=== PATIENT | male | born 2000 | race Caucasian/White ===

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

== ENCOUNTER 2019-04-15 10:45 | Emergency (ER) | payer SELFPAY ==
[~2019-04-15] VITALS: Ht 170.2 cm; Wt 58.1 kg
[2019-04-15 10:51] VITALS: BP 113/67
[2019-04-15] MEDS ORDERED: IBUPROFEN 600 MG TAB PO ONE (11:25)
[2019-04-15] MEDS ORDERED: KETOROLAC 30 MG/ML VIAL IM ONE (12:40)
[2019-04-15 14:59] VITALS: BP 102/63
== END 2019-04-15 14:59 | disposition home or self-care (01) ==
LOC: MED 10:45
DX: S51.812A Laceration without foreign body of left forearm, initial encounter (principal); S51.811A Laceration without foreign body of right forearm, initial encounter; R07.89 Other chest pain; Y04.0XXA Assault by unarmed brawl or fight, initial encounter; Y93.89 Activity, other specified; Y92.89 Other specified places as the place of occurrence of the external cause; Y99.8 Other external cause status
CPT/HCPCS: 71101; 72170; 86703; 96372; 99284; J1885

== ENCOUNTER 2019-04-17 11:51 | Emergency (ER) | payer SELFPAY ==
[~2019-04-17] VITALS: Ht 170.2 cm; Wt 56.7 kg
[2019-04-17 11:58] VITALS: BP 136/76
--- NOTE | 2019-04-17 11:58 | NUR ---
PATIENT AMBULATED TO BED 3 AT THIS TIME.
--- NOTE | 2019-04-17 12:00 | NUR ---
18/M presents to ED for a work excuse allowing him to return back to work. Pt was seen Saturday and given a work excuse but patient states his job needs a doctor's note saying he has no restrictions. Pt denies any pain at this time.
[2019-04-17 12:43] VITALS: BP 136/76
--- NOTE | 2019-04-17 12:43 | NUR ---
Patient discharged with v/s stable. Written and verbal after care instructions given and explained. Patient verbalized understanding. Ambulatory with steady gait. All questions addressed prior to discharge. Patient provided with work excuse allowing patient to return to work with full activity.
== END 2019-04-17 12:43 | disposition home or self-care (01) ==
LOC: MED 11:51
DX: Z02.89 Encounter for other administrative examinations (principal); Y08.89XA Assault by other specified means, initial encounter; Y93.89 Activity, other specified; Y92.89 Other specified places as the place of occurrence of the external cause; Y99.8 Other external cause status
CPT/HCPCS: 99281

== ENCOUNTER 2019-04-21 10:14 | Emergency (ER) | payer SELFPAY ==
[~2019-04-21] VITALS: Ht 170.2 cm; Wt 56.7 kg
[2019-04-21 10:16] VITALS: BP 125/62
--- NOTE | 2019-04-21 10:16 | NUR ---
CAME HERE FOR MEDICAL CLEARANCER & GET PERMISSION TO GO BACK TO WORK AFTER RIGHT ANKLE PAIN X 2 DAYS AGO. PT STATES PAIN HURTS WHEN HE ADDS PRESSURE TO RIGHT ANKLE. NO REDNESS OR SWELLING NOTED. CMS INTACT. VSS. PEDAL PULSE +2 BILATERALLY. NO OBVIOUS DEFOMRITY NOTED ON EXTREM. PATIENT POSITIONED FOR COMFORT; HOB ELEVATED; BEDRAILS UP X2; BED DOWN. ER MD MADE AWARE OF PT STATUS. NKA. NO PMH.
[2019-04-21] MEDS ORDERED: IBUPROFEN 400 MG TAB PO ONE (10:35)
--- NOTE | 2019-04-21 10:41 | NUR ---
RT AT BEDSIDE TO TRANSFER PT TO XR VIA WHEELCHAIR.
--- NOTE | 2019-04-21 11:09 | NUR ---
Dr. Jimenez evaluating patient at bedside.
[2019-04-21 11:19] VITALS: BP 125/62
--- NOTE | 2019-04-21 11:20 | NUR ---
DPatient discharged with v/s stable. Written and verbal after care instructions given and explained. Patient verbalized understanding. Ambulatory with steady gait. All questions addressed prior to discharge. Advised to follow up with PMD.
== END 2019-04-21 11:15 | disposition home or self-care (01) ==
LOC: MED 10:14
DX: S90.31XA Contusion of right foot, initial encounter (principal); X50.1XXA Overexertion from prolonged static or awkward postures, initial encounter; Y93.39 Activity, other involving climbing, rappelling and jumping off; Y92.89 Other specified places as the place of occurrence of the external cause; Y99.8 Other external cause status
CPT/HCPCS: 73630; 73650; 99283

== ENCOUNTER 2019-06-12 20:46 | Emergency (ER) | payer SELFPAY ==
[~2019-06-12] VITALS: Ht 175.3 cm; Wt 56.7 kg
[2019-06-12 20:46] VITALS: BP 117/78
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
--- NOTE | 2019-06-12 20:46 | NUR ---
SANDI BELTRAN. AMBULATED TO CHAIR C.
[2019-06-12 21:10] VITALS: BP 110/75
--- NOTE | 2019-06-12 21:11 | NUR ---
Patient discharged with v/s stable. Written and verbal after care instructions given and explained. Patient verbalized understanding. Amb in custody, escorted by [facility]. All questions addressed prior to discharge. Advised to follow up with PMD.
== END 2019-06-12 21:10 ==
LOC: MED 20:46
DX: M79.10 Myalgia, unspecified site (principal); Z02.89 Encounter for other administrative examinations
CPT/HCPCS: 99283

== ENCOUNTER 2019-06-25 23:37 | Emergency (ER) | payer SELFPAY ==
[~2019-06-25] VITALS: Ht 172.7 cm; Wt 68.0 kg
[2019-06-25 23:38] VITALS: BP 150/98
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
--- NOTE | 2019-06-25 23:43 | NUR ---
TO BED # 03 VIA WHEEL CHAIR
[2019-06-26 00:39] VITALS: BP 135/76
--- NOTE | 2019-06-26 00:39 | NUR ---
Patient discharged with v/s stable. Written and verbal after care instructions given and explained. Patient verbalized understanding. Ambulatory with steady gait. All questions addressed prior to discharge. Advised to follow up with PMD. Addendum: 06/26/19 at 0104 by CHRISTOPH DISCHARGED BY DR. ROWE.
== END 2019-06-26 00:39 | disposition home or self-care (01) ==
LOC: MED 23:37
DX: R00.2 Palpitations (principal); F41.9 Anxiety disorder, unspecified; R20.0 Anesthesia of skin; F17.210 Nicotine dependence, cigarettes, uncomplicated; F12.90 Cannabis use, unspecified, uncomplicated
CPT/HCPCS: 99283

== ENCOUNTER 2019-09-28 13:20 | Emergency (ER) | payer MEDICAID ==
[~2019-09-28] VITALS: Ht 175.3 cm; Wt 71.7 kg
[2019-09-28 13:40] VITALS: BP 122/89
--- NOTE | 2019-09-28 13:53 | NUR ---
18 Y/O MALE STATES HE WAS SENT HOME FROM WORK TO GET MEDICAL CLEARANCE DUE TO HAVING NON PRODUCTIVE COUGH AND SORE THROAT X 2 DAYS. DENIES PAIN. RR EVEN AND UNLABORED, NO ACCESSORY MUSCLE USED. DENIES FEVER/BODY ACHES. HAS NOT TAKEN ANY MEDICATION FOR COUGH. VSS MEDHX: ANXIETY ALLERIGES: SABINA
--- NOTE | 2019-09-28 14:16 | NUR ---
DR MARIA AT BEDSIDE EXAMINING PT
[2019-09-28 14:30] VITALS: BP 122/89
--- NOTE | 2019-09-28 14:31 | NUR ---
Patient discharged with v/s stable. Written and verbal after care instructions given and explained. Patient alert, oriented and verbalized understanding of instructions. Ambulatory with steady gait. All questions addressed prior to discharge. ID band removed. Patient advised to follow up with PMD. Rx of ATARAX, MOTRIN, PREDNISONE given. Patient educated on indication of medication including possible reaction and side effects. Opportunity to ask questions provided and answered.
== END 2019-09-28 14:31 | disposition home or self-care (01) ==
LOC: MED 13:20
DX: J02.9 Acute pharyngitis, unspecified (principal); F41.9 Anxiety disorder, unspecified
CPT/HCPCS: 99283

== ENCOUNTER 2020-01-16 16:15 | Emergency (ER) | payer SELFPAY ==
[~2020-01-16] VITALS: Ht 180.3 cm; Wt 63.0 kg
[2020-01-16 16:15] VITALS: BP 102/60
--- NOTE | 2020-01-16 16:15 | NUR ---
Patient transferred to bed [address] Almonte and RN evaluating patient at bedside.
[2020-01-16] MEDS ORDERED: NACL 0.9% 1,000 ML IV ONE (16:20)
[2020-01-16] MEDS ORDERED: KETOROLAC 30 MG/ML VIAL IVP ONE (16:20)
--- NOTE | 2020-01-16 16:24 | NUR ---
[employer] Officer Pratik at bedside.
--- NOTE | 2020-01-16 16:44 | NUR ---
earth moving technician at bedside.
[2020-01-16] MEDS ORDERED: LIDOCAINE/EPI 1% 1:100000 20 ML VIAL INJ ONE (18:00)
[2020-01-16] MEDS ORDERED: BACITRACIN OINT 500 UNITS/GM PKT TP ONE (18:25)
[2020-01-16] MEDS ORDERED: SULFAMETH/TRIMETH DS 800/160MG 1 TAB PO ONE (18:25)
--- NOTE | 2020-01-16 18:40 | NUR ---
IV removed, catheter intact and site benign. Applied folded 4x4 gauze and tape to stop bleeding.
[2020-01-16 18:42] VITALS: BP 111/71
--- NOTE | 2020-01-16 18:42 | NUR ---
Patient discharged with v/s stable. Written and verbal after care instructions given and explained. Patient alert, oriented and verbalized understanding of instructions. Ambulatory with steady gait. All questions addressed prior to discharge. ID band removed. Patient advised to follow up with PMD. Rx of Bactrim DS and Ibuprofen 800mg given. Patient educated on indication of medication including possible reaction and side effects. Opportunity to ask questions provided and answered.
== END 2020-01-16 18:42 | disposition home or self-care (01) ==
LOC: MED 16:15
DX: S71.111A Laceration without foreign body, right thigh, initial encounter (principal); W34.09XA Accidental discharge from other specified firearms, initial encounter; Y93.89 Activity, other specified; Y92.89 Other specified places as the place of occurrence of the external cause; Y99.8 Other external cause status
CPT/HCPCS: 12002; 71250; 73552; 74176; 90471; 90715; 96374; 99285; J1885; J2001; J7030

== ENCOUNTER 2020-01-19 07:34 | Emergency (ER) | payer MEDICAID ==
[~2020-01-19] VITALS: Ht 175.3 cm; Wt 65.8 kg
[2020-01-19 07:40] VITALS: BP 123/84
--- NOTE | 2020-01-19 07:45 | NUR ---
PT WHEELCHAIRED TO ER BED 04
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
[2020-01-19 08:46] VITALS: BP 123/84
--- NOTE | 2020-01-19 08:48 | NUR ---
Patient discharged with v/s stable. Written and verbal after care instructions given and explained. Patient alert, oriented and verbalized understanding of instructions. Ambulatory with steady gait. All questions addressed prior to discharge. ID band removed. Patient advised to follow up with PMD. Rx of Depakote 250mg and Olanzapine 5mg given. Patient educated on indication of medication including possible reaction and side effects. Opportunity to ask questions provided and answered.
== END 2020-01-19 08:48 | disposition home or self-care (01) ==
LOC: MED 07:34
DX: M54.9 Dorsalgia, unspecified (principal); F29 Unspecified psychosis not due to a substance or known physiological condition; V09.9XXA Pedestrian injured in unspecified transport accident, initial encounter; Y93.89 Activity, other specified; Y92.89 Other specified places as the place of occurrence of the external cause; Y99.8 Other external cause status
CPT/HCPCS: 72080; 99283